=== PATIENT | male | born 1960 | race African-American/Black ===

== ENCOUNTER 2020-10-16 09:30 | Emergency (ER) | payer MEDICAID ==
[~2020-10-16] VITALS: Ht 180.3 cm; Wt 88.0 kg
[2020-10-16] MEDS ORDERED: IBUPROFEN 600MG TABLET PO ONE (10:00)
[2020-10-16] MEDS ORDERED: IBUP-2028 MT (10:52)
[2020-10-16 11:05] VITALS: BP 124/82
== END 2020-10-16 11:06 | disposition home or self-care (01) ==
LOC: ER 09:30
DX: M54.5 Low back pain (principal)
CPT/HCPCS: 72070; 72100; 99284